=== PATIENT | female | born 1995 | race African-American/Black ===

== ENCOUNTER → 2017-02-18 | Outpatient (CLI) | payer OTHER ==
--- NOTE | 2017-02-18 14:43 | REP ---
TRIPLE PHASE BONE SCAN OF THE RIBS: Following the intravenous administration of 22 millicuries technetium 99m MDP, patient's chest is imaged in the flow phase in the anterior and posterior projections showing normal blood pool structures. Immediate blood pool and 2-hour delayed images are performed of the region of the chest in the anterior, posterior and both anterior and posterior oblique projections. There is no abnormal blood pooling. There is symmetrical rib activity bilaterally with no evidence of fracture or bone lesion. IMPRESSION: Negative tripe phase bone scan of the ribs. Signed by Lowell Alonso MD 02/19/2017 05:13 P
== END ==
LOC: M RAD 10:39
PROVIDERS: ATTEND Physician Assistant
DX: R07.81 Pleurodynia (principal); Z79.3 Long term (current) use of hormonal contraceptives; Z87.81 Personal history of (healed) traumatic fracture

== ENCOUNTER 2017-04-18 22:14 | Emergency (ER) | payer OTHER ==
[~2017-04-18] VITALS: Ht 160 cm; Wt 77.0 kg
[2017-04-18] MEDS ORDERED: SERT50TA PO (22:21)
[2017-04-18 23:10] LABS: BASO % 0.5 % (0.0-1.0); EOS # 0.4 K/mm3 (0.0-0.50); EOS % 4.1 % (0.0-3.0); LARGE UNSTAINED CELL # 0.2 K/mm3 (0.0-0.4); LARGE UNSTAINED CELL % 1.8 % (0.0-4.0); LYMPH # 2.6 K/mm3 (1.5-6.5); LYMPH % 26.9 % (24.0-44.0); MEAN CORPUSCULAR HEMOGLOBIN 30.1 pg (27.0-33.0); MEAN CORPUSCULAR HGB CONC 33.2 g/dl (32.0-36.5); MEAN CORPUSCULAR VOLUME 90.8 fl (80.0-96.0); MONO # 0.5 K/mm3 (0.0-0.8); MONO % 5.6 % (0.0-5.0); NEUTROPHILS # 5.5 K/mm3 (1.8-7.7); NEUTROPHILS % 61.2 % (36.0-66.0); PLATELET COUNT, AUTOMATED 252 k/mm3 (150-450); RED CELL DISTRIBUTION WIDTH 12.9 % (11.5-14.5)
[2017-04-18 23:33] LABS: CONTROL LINE HCG INT CTR LINE PRESENT
[2017-04-18 23:36] LABS: ANION GAP 4 MEQ/L (8-16); BLOOD UREA NITROGEN 12 MG/DL (7-18); CALCIUM LEVEL 9.2 MG/DL (8.5-10.1); CARBON DIOXIDE LEVEL 27 MEQ/L (21-32); CHLORIDE LEVEL 111 MEQ/L (98-107); CREATININE FOR GFR 0.77 MG/DL (0.55-1.02); GLOMERULAR FILTRATION RATE > 60.0 (>60); GLUCOSE, FASTING 90 MG/DL (70-105); POTASSIUM SERUM 3.7 MEQ/L (3.5-5.1); SODIUM LEVEL 142 MEQ/L (136-145)
[2017-04-18] MEDS ORDERED: ISOVUE-370 76% 100ML VIAL (Q9967) As Ordered ONE (23:40)
--- NOTE | 2017-04-19 00:30 | REPUSA ---
CLINICAL HISTORY: Trauma. TECHNIQUE: Multiple axial CT images were obtained through chest with IV contrast material. MPR brown l and sagittal sequences were obtained. COMMENTS: There is no evidence of pleural or parenchymal mass. There are no pleural effusions. There is no evid ence of hilar or mediastinal lymphadenopathy. The heart and great vessels are within normal limits. Minimal bilateral basilar atelectatic pulmonary changes. The visualized portions of the liver are of uniform attenuation without mass or defect. There is no i ntra or extrahepatic biliary ductal dilatation. The spleen is unremarkable. The visualized pancreas i s of normal contour and attenuation characteristics. There is no evidence of adrenal mass. The visual ized portions of the kidneys present no abnormalities. The bony structures are free of lytic or blastic lesions. Multilevel degenerative changes are seen in volving the thoracic spine. Scattered calcifications are seen involving the aorta and visualized marty r branches compatible with atherosclerosis. No evidence for abnormal enhancement. IMPRESSION: Minimal bilateral basilar atelectatic pulmonary changes. Thank you for your kind referral of this patient.
--- NOTE | 2017-04-19 00:40 | REPUSA ---
CLINICAL HISTORY: Abdominal pain. TECHNIQUE: Multiple axial, sagittal and coronal CT images were obtained through the abdomen and pelvi s after administration of intravenous contrast material. COMMENTS: 1.3 cm enhancing lesion in the segment 4A. 2.5 cm enhancing lesion in the segment 8. The remaining liver is of uniform attenuation without mass or defect. There is no intra or extrahepat ic biliary ductal dilatation. The spleen is normal. The gallbladder is within normal limits. The panc reas is of normal contour and attenuation characteristics. There is no evidence of adrenal mass. Both kidneys demonstrate prompt and equal nephrograms. The kidneys are normal in size, shape and conf iguration. There is no evidence of renal or ureteral mass. No renal or ureteral calculi are identifie d. There is no hydroureter or hydronephrosis. No evidence for appendicitis. There is no bowel wall thickening. No evidence for small or large monique l obstruction. There is no evidence of abdominal ascites or lymphadenopathy. There is no evidence of intrinsic or extrinsic bladder mass. There is no pelvic ascites or lymphadeno betito. Uncomplicated sigmoid diverticulosis. Pelvic congestion syndrome. Images of the lung bases show no evidence of pleural or parenchymal mass. There are no pleural effusi ons. The bony structures are free of lytic or blastic lesions. Multilevel degenerative changes are seen in volving the thoracolumbar spine. Scattered calcifications are seen involving the aorta and major bran ches compatible with atherosclerosis. IMPRESSION: Enhancing hepatic lesions. Probably hemangiomas. Uncomplicated diverticulosis. Pelvic congestion syndrome. No evidence of acute abdominal or pelvic pathology. Thank you for your kind referral of this patient.
[2017-04-19 01:17] VITALS: BP 106/68
--- NOTE | 2017-04-19 06:55 | REP ---
Clinical: Trauma . Technique: Internal rotation, external rotation, and Y view left shoulder . Findings: No acute fracture or dislocation. The acromioclavicular and glenohumeral joints are intact. No periarticular calcifications or degenerative changes are appreciated. Sub acromial space is normal. Surrounding soft tissues are unremarkable. Impression: Normal left shoulder radiographs. Signed by Tomás Willis MD 04/19/2017 06:46 A
[2017-06-30] MEDS ORDERED: APPL188C PO (13:15)
[2017-06-30] MEDS ORDERED: PROAAER10 INH (13:17)
[2017-06-30] MEDS ORDERED: [UNRECOGNIZED DRUG - OTHER] (13:27)
== END 2017-04-19 01:40 | disposition home or self-care (01) ==
LOC: M ED 22:14
DX: S20.219A Contusion of unspecified front wall of thorax, initial encounter (principal); W20.8XXA Other cause of strike by thrown, projected or falling object, initial encounter; Y92.099 Unspecified place in other non-institutional residence as the place of occurrence of the external cause; Y93.9 Activity, unspecified; Y99.9 Unspecified external cause status; N94.89 Other specified conditions associated with female genital organs and menstrual cycle; J45.909 Unspecified asthma, uncomplicated; F17.200 Nicotine dependence, unspecified, uncomplicated
CPT/HCPCS: 71260; 73030; 74177; 80048; 84703; 85025; 93041; 94760; 99285; Q9967

== ENCOUNTER 2017-07-06 10:25 | Day surgery (SDC) | payer OTHER ==
[~2017-07-06] VITALS: Ht 160 cm; Wt 71.7 kg
[~2017-07-06 10:25] MED LIST: APPL188C PO; PROAAER10 INH; SERT50TA PO; [UNRECOGNIZED DRUG - OTHER]
[2017-07-06] MEDS ORDERED: ACETAMINOPHEN 650 MG SUPP PR ONE (10:45)
[2017-07-06] MEDS ORDERED: LR 1,000 ML IV SCH ×2 (10:45→15:45)
[2017-07-06 10:50] LABS: MEAN CORPUSCULAR HEMOGLOBIN 32.1 pg (27.0-33.0); MEAN CORPUSCULAR HGB CONC 35.3 g/dl (32.0-36.5); MEAN CORPUSCULAR VOLUME 90.7 fl (80.0-96.0); RED CELL DISTRIBUTION WIDTH 12.5 % (11.5-14.5); WHITE BLOOD COUNT 6.8 K/mm3 (4.0-10.0)
[2017-07-06 11:17] LABS: ANION GAP 5 MEQ/L (8-16); BLOOD UREA NITROGEN 11 MG/DL (7-18); CARBON DIOXIDE LEVEL 25 MEQ/L (21-32); CHLORIDE LEVEL 111 MEQ/L (98-107); CREATININE FOR GFR 0.74 MG/DL (0.55-1.02); GLOMERULAR FILTRATION RATE > 60.0 (>60); GLUCOSE, FASTING 77 MG/DL (70-105); HCG, SERUM QUANTITATIVE < 1.0 MIU/ML; POTASSIUM SERUM 4.1 MEQ/L (3.5-5.1); SODIUM LEVEL 141 MEQ/L (136-145)
[2017-07-06] MEDS ORDERED: MIDAZOLAM INJ 2 MG/2 ML VIAL (J2250) As Ordered ONE (14:27)
[2017-07-06] MEDS ORDERED: fentaNYL 100 MCG/2 ML INJECTION (J3010) As Ordered ONE (14:27)
[2017-07-06] MEDS ORDERED: ROCURONIUM BROMIDE 50 MG/5 ML VIAL/SYRINGE As Ordered ONE (14:28)
[2017-07-06] MEDS ORDERED: LIDOCAINE 2% INJ 100 MG/5 ML SDV (FOR ANES.) As Ordered ONE (14:28)
[2017-07-06] MEDS ORDERED: PROPOFOL 200 MG/20 ML VIAL As Ordered ONE (14:28)
[2017-07-06] MEDS ORDERED: KETOROLAC 60 MG/2 ML VIAL (J1885) As Ordered ONE (14:29)
[2017-07-06] MEDS ORDERED: GLYCOPYRROLATE INJ 0.2 MG/ML 2 ML VIAL As Ordered ONE (14:29)
[2017-07-06] MEDS ORDERED: ONDANSETRON 4MG/2ML VIAL (J2405) As Ordered ONE (14:29)
[2017-07-06] MEDS ORDERED: NEOSTIGMINE 1MG/ML 5 ML SYRINGE (J2710) As Ordered ONE (14:29)
[2017-07-06] MEDS ORDERED: METOCLOPRAMIDE INJ 10MG/2ML VIAL (J2765) As Ordered ONE (14:29)
[2017-07-06] MEDS ORDERED: dexameTHASONE 4 MG/ML 1ML VIAL (J1100) As Ordered ONE (14:29)
[2017-07-06] MEDS ORDERED: ACETAMINOPHEN 650 MG SUPP As Ordered ONE (14:32)
[2017-07-06] MEDS ORDERED: BUPIVACAINE HCL 0.5% 10 ML VIAL As Ordered ONE (14:38)
[2017-07-06] MEDS ORDERED: PERCOCET 5MG/325MG TAB PO PRN (15:45)
[2017-07-06] MEDS ORDERED: fentaNYL 100 MCG/2 ML INJECTION (J3010) IV PRN (15:45)
[2017-07-06] MEDS ORDERED: HYDROmorphone HCL 1 MG/ML SYRINGE (J1170) IV PRN (15:45)
[2017-07-06] MEDS ORDERED: ONDANSETRON 4MG/2ML VIAL (J2405) IV PRN (15:45)
[2017-07-06 16:35] VITALS: BP 112/63
--- NOTE | 2017-07-12 09:08 | RO ---
DATE OF PROCEDURE: 07/06/2017 PREOPERATIVE DIAGNOSIS: Pelvic pain. POSTOPERATIVE DIAGNOSIS: Posterior cul-de-sac varicosities. OPERATION PROPOSED: Diagnostic laparoscopy. OPERATION PERFORMED: Diagnostic laparoscopy. SURGEON: Dr. 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 ESTIMATED BLOOD LOSS: 20 mL After adequate time out, sequentials on board, Babin catheter in the bladder draining clear urine, antibiotics not indicated, weighted speculum in the vagina, single-tooth tenaculum on the anterior lip of the cervix, there is no evidence of cervical uterine prolapse. She has really a very small cervix noted, but physiologically functional. Reprepping and draping. A small subumbilical incision was made. Direct entry into the abdomen with a 5 mm scope. No evidence of perforation, hemorrhage or bleeding. We dilated up the abdomen with 3.2 liters of CO2 at a flow rate of 14 to a pressure of 14. Panoramic review revealed that the right upper quadrant was normal. The right round ligament was normal. The left round ligament was normal. The uterus itself was normal size, mobile and no evidence of pathology there. The right and left ovaries and tubes being within normal limits. We were able to also visualize the ureters moving on both sides. In the cul-de-sac, interestingly, she had huge varicosities which almost filled the whole of the cul-de-sac. The arch uterosacrals were normal. The varicosities were noted on CT scan. When the uterus is in the mid position or anteverted, the varicosities disappear. When you put the uterus back in its retroverted position, the varicosities reappear. There has been some question about the validity of doing an uterine suspension by bringing and approximating the uterus into the midline. This may be discussed with the patient later on. There was no other evidence of pathology. No evidence of adhesions, endometriosis or scar tissue. The cul-de-sac itself was clear. With that done, we deflated to 4 mm of pressure under direct vision and removed the 5 mm port. Used a subcuticular stitch. Marcaine 0.25%, 4 mL, into the incisional site, and skin tape was placed. We then removed the Babin catheter, removed the uterine elevator and the weighted speculum. The patient was sent to recovery in good condition.
== END 2017-07-06 16:51 | disposition home or self-care (01) ==
LOC: M SDC 10:25
PROVIDERS: ATTEND Obstetrics & Gynecology
DX: I86.2 Pelvic varices (principal); R10.2 Pelvic and perineal pain; J45.909 Unspecified asthma, uncomplicated; Z79.899 Other long term (current) drug therapy; F17.210 Nicotine dependence, cigarettes, uncomplicated; Z91.010 Allergy to peanuts; Z91.030 Bee allergy status; Z91.018 Allergy to other foods
CPT/HCPCS: 36415; 49320; 80048; 84702; 85027; J1100; J1885; J2250; J2405; J2710; J2765; J3010

== ENCOUNTER 2017-07-28 19:05 | Emergency (ER) | payer OTHER ==
[~2017-07-28] VITALS: Ht 160 cm; Wt 73.1 kg
[2017-07-28 19:05] VITALS: BP 139/87
--- NOTE | 2017-07-29 03:18 | REP ---
Clinical: Trauma. Technique: AP, lateral, bilateral oblique and sunrise views left knee. Findings: The osseous structures and joint spaces are intact and normal. There is no evidence for acute fracture or dislocation. No joint effusion is appreciated. Surrounding soft tissues are unremarkable. No subcutaneous emphysema or radiodense foreign body. Impression: Normal examination. No acute fracture or dislocation. Signed by Tomás Willis MD 07/29/2017 03:08 A
== END 2017-07-28 22:47 | disposition home or self-care (01) ==
LOC: M ED 19:05
DX: M25.562 Pain in left knee (principal); J45.909 Unspecified asthma, uncomplicated; F32.9 Major depressive disorder, single episode, unspecified; F17.200 Nicotine dependence, unspecified, uncomplicated; Z79.3 Long term (current) use of hormonal contraceptives; Z79.899 Other long term (current) drug therapy; Z91.010 Allergy to peanuts; Z91.018 Allergy to other foods; Z91.030 Bee allergy status

== ENCOUNTER 2018-04-10 02:56 | Emergency (ER) | payer OTHER ==
[2018-04-10] MEDS: METOCLOPRAMIDE INJ 10MG/2ML VIAL (J2765) IV ×2 (04:39)
[2018-04-10] MEDS: diphenhydrAMINE INJ 50MG/ML VIAL (J1200) IV ×2 (04:40)
[2018-04-10] MEDS: KETOROLAC 30 MG/ML VIAL (J1885) IV ×2 (04:40)
== END 2018-04-10 05:51 | disposition home or self-care (01) ==
LOC: M ED 02:56
DX: Z04.1 Encounter for examination and observation following transport accident (principal); R51 Headache; F17.210 Nicotine dependence, cigarettes, uncomplicated; Z91.018 Allergy to other foods; Z91.030 Bee allergy status; Z91.010 Allergy to peanuts; Z79.3 Long term (current) use of hormonal contraceptives; Z79.899 Other long term (current) drug therapy
CPT/HCPCS: J1200